=== PATIENT | female | born 1970 | race Caucasian/White ===

== ENCOUNTER → 2016-05-14 | Outpatient (CLI) | payer OTHER ==
[~2016-05-14] MED LIST: CEPH500C PO; CHN/1 PO; CIPR-255 PO; HYDR-5688 PO; IBUP-1451 PO; OXYC-57 PO; PENI500T2 PO
--- NOTE | 2016-05-15 15:11 | MAMMOGRAPHY REPORT ---
BILATERAL DIGITAL SCREENING MAMMOGRAM TOMOSYNTHESIS WITH CAD: 05/14/2016 CLINICAL HISTORY: Routine screening. Patient has no complaints. TECHNIQUE: Breast tomosynthesis in addition to standard 2D mammography was performed. Current study was also evaluated with a Computer Aided Detection (CAD) system. COMPARISON: Comparison is made to exams dated: 06/02/2013 mammogram and 05/27/2012 mammogram - [facility]. BREAST COMPOSITION: There are scattered areas of fibroglandular density in both breasts. FINDINGS: The parenchymal pattern is similar to prior mammograms. No new suspicious mass, net software architect ural distortion or cluster of microcalcifications is seen. IMPRESSION: ACR BI-RADS CATEGORY 1: NEGATIVE There is no mammographic evidence of malignancy. A 1 year screening mammogram is recommended. The p atient will receive written notification of the results. Approximately 10% of breast cancers are not detected with mammography. A negative mammographic repor t should not delay biopsy if a clinically suggestive mass is present. Verito Hickman M.D. ay/:05/14/2016 16:12:30 Chiller Tender: Araseli BLANCA(R)(Fernando)(BD), [facility] letter sent: Normal 1/2 BI-RADS Code: ACR BI-RADS Category 1: Negative
== END | disposition home or self-care (01) ==
LOC: C.MAMM 14:35
PROVIDERS: ATTEND Obstetrics & Gynecology
DX: Z12.31 Encounter for screening mammogram for malignant neoplasm of breast (principal)

== ENCOUNTER → 2017-02-15 | Outpatient (CLI) | payer OTHER ==
[~2017-02-15] MED LIST changes: -CEPH500C PO; -CIPR-255 PO; -HYDR-5688 PO; -IBUP-1451 PO; -OXYC-57 PO; -PENI500T2 PO
== END | disposition home or self-care (01) ==
LOC: C.LABBFT 14:22
PROVIDERS: ATTEND Obstetrics & Gynecology
DX: N95.1 Menopausal and female climacteric states (principal)

== ENCOUNTER 2017-05-10 05:33 | Observation (INO) | payer OTHER ==
[2017-05-01 10:55] VITALS: BMI 27.0
--- NOTE | 2017-05-01 11:19 | PAT Medication Instructions ---
Service Date May 01, 2017. Current Home Medication List Ibuprofen Tab (Motrin), 800 MG PO UD PRN for prn Varenicline (Chantix), 1 TAB PO BID Medication Instructions For Your Scheduled Surgery - Check [facility] surgeon for instructions: Ibuprofen Tab (Motrin), 800 MG PO UD PRN for prn - Hold the following medications the morning of surgery: Varenicline (Chantix), 1 TAB PO BID - Take the following medications as scheduled the night before surgery: Varenicline (Chantix), 1 TAB PO BID If you have any questions please call us at [phone] or [phone] or [phone]
[2017-05-01 11:59] LABS: BASO % 0.6 %; BASO ABS # 0.04 K/uL (0-0.2); EOS % 1.5 %; HEMATOCRIT 44.8 % (37-47); HEMOGLOBIN 15.3 g/dL (12.0-16.0); IG# 0.01 K/uL (0.00-0.02); LYMPH % 25.7 %; LYMPH ABS # 1.75 K/uL (1.2-3.4); MEAN CELL VOLUME 91.2 fL (80-100); MEAN CORPUSCULAR HEMOGLOBIN 31.2 pg (25-34); MEAN CORPUSCULAR HGB CONC 34.2 g/dl (32-36); MONO % 6.3 %; MONO ABS # 0.43 K/uL (0.11-0.59); NEUT % 65.8 %; NEUT ABS # 4.47 K/uL (1.4-6.5); PLATELET COUNT 302 K/uL (130-400); RED CELL DISTRIBUTION WIDTH CV 13.3 % (11.5-14.5); RED CELL DISTRIBUTION WIDTH SD 44.1 fL (36.4-46.3)
[2017-05-01 12:16] LABS: CALCIUM 8.9 mg/dl (8.5-10.1); CREATININE 0.85 mg/dl (0.60-1.20); POTASSIUM 4.1 mmol/L (3.5-5.1)
[~2017-05-10] VITALS: Ht 175.3 cm; Wt 83.1 kg
[2017-05-10] VITALS (9 sets, daily range): BP systolic 104–131; BP diastolic 61–77; PULSE 53–95; TEMP 36.3–36.6; O2SAT 94–99; Ht 175.3 cm; Wt 83.1 kg
[~2017-05-10 05:33] MED LIST changes: +IBUP-1451 PO
[2017-05-10] MEDS ORDERED: LACTATED RINGER'S 1000ML 1,000 ML IV SCH ×2 (06:00)
[2017-05-10] MEDS ORDERED: CEFAZOLIN 2000MG IV PUSH 10 ML IV SCH (06:00)
[2017-05-10] MEDS ORDERED: BUPIVACAINE 0.5 % 5 MG/1 ML MPF 30ML VIAL ONE (06:51)
[2017-05-10] MEDS ORDERED: METHYLENE BLUE 0.5% 10 ML VIAL ONE (06:51)
[2017-05-10] MEDS ORDERED: ROCURONIUM BROMIDE 10 MG/ML 5 ML VIAL IV ONE (07:05)
[2017-05-10] MEDS ORDERED: LIDOCAINE HCL 2% 2 ML VIAL (20MG/ML) ONE (07:05)
[2017-05-10] MEDS ORDERED: PROPOFOL IV EMULSION 10 MG/ML 20 ML VIAL IV ONE (07:05)
[2017-05-10] MEDS ORDERED: MIDAZOLAM HCL 1 MG/ML 2ML VIAL ONE (07:06)
[2017-05-10] MEDS ORDERED: FENTANYL CITRATE INJ 50 MCG/1 ML 2 ML VIAL ONE ×3 (07:06→08:53)
[2017-05-10] MEDS ORDERED: EpHEDrine SULFATE INJ 50 MG/ML AMP IV PRN (07:15)
[2017-05-10] MEDS ORDERED: PROMETHAZINE HCL INJ 6.25 MG in SODIUM CHLORIDE 0.9% 50ML 50 ML IV PRN (07:15)
[2017-05-10] MEDS ORDERED: ATROPINE SULFATE 0.1 MG/ML 5ML SYR IV PRN (07:15)
[2017-05-10] MEDS ORDERED: ONDANSETRON INJ 2 MG/ML 2 ML VIAL IV PRN ×2 (07:15→10:45)
--- NOTE | 2017-05-10 07:27 | History & Physical Bridge Note ---
H&P Re-Evaluation Bridge Note: I have examined the patient, reviewed the History & Physical and in the interval since the performance of the History & Physical I have noted the following changes of clinical significance: Plan for TLH/BSO with robotic assistance.
[2017-05-10] MEDS ORDERED: LABETALOL HCL IV 5 MG/ML 20ML IV ONE (09:16)
[2017-05-10] MEDS ORDERED: ONDANSETRON INJ 2 MG/ML 2 ML VIAL ONE (09:36)
[2017-05-10] MEDS ORDERED: GLYCOPYRROLATE INJ 0.2 MG/ML VIAL ONE (09:36)
[2017-05-10] MEDS ORDERED: DEXAMETHASONE SOD INJ 4 MG/ML VIAL ONE (09:36)
[2017-05-10] MEDS ORDERED: KETOROLAC TROMETHAMINE 30 MG/ML VIAL ONE (09:37)
[2017-05-10] MEDS ORDERED: NEOSTIGMINE METHYLSULFATE 5 MG/5 ML SYR ONE (09:37)
[2017-05-10] MEDS ORDERED: HYDROmorphone INJ 2 MG/ML SYR/VIAL ONE (10:11)
[2017-05-10] MEDS ORDERED: TISSEEL FIBRIN SEALANT 4ML TOP ONE (10:22)
[2017-05-10] MEDS ORDERED: SIMETHICONE 80 MG CHEW PO PRN (10:45)
[2017-05-10] MEDS ORDERED: OXYCODONE/ACETAMINOPHEN 5-325 TAB PO PRN (10:45)
--- NOTE | 2017-05-10 10:48 | [facility] Post Operative Brief Note ---
Immediate Operative Summary Operative Date May 10, 2017. Pre-Operative Diagnosis Genetic Susceptibility to Ovarian Cancer Post-Operative Diagnosis Same as Preop Procedure(s) Performed total Laparoscopic Hysterectomy, Bilateral Salpingo-Oophorectomy, cystoscopy Surgeon Dr. Etaon Accredited Farm Manager Surgeon(s) none Estimated Blood Loss 5 ML Findings Normal appearing uterus, tubes, ovaries. Tubes s/p tubal ligation. Bladder appears wnl with bilateral ureter jets. Specimens A. Cervix, Uterus, Bilateral Fallopian Tubes and Ovaries Drains ramirez, clear yellow Anesthesia general Complication(s) None Disposition Recovery Room / PACU
[2017-05-10] MEDS: FENTANYL CITRATE INJ 50 MCG/1 ML 2 ML VIAL IV PRN ×4 (10:52→11:13)
--- NOTE | 2017-05-10 11:40 | Anesthesiology Progress Note ---
Anesthesia Post Op Note Date & Time May 10, 2017 at 11:40 Vital Signs Pain Intensity: 3 Vital Signs Past 12 Hours Date Time Temp Pulse Resp B/P (MAP) Pulse Ox O2 Delivery O2 Flow Rate FiO2 05/10/17 11:21 36.2 56 16 103/71 99 Nasal Cannula 2 05/10/17 11:11 63 16 135/70 100 Nasal Cannula 2 05/10/17 11:01 69 16 126/74 100 Nasal Cannula 2 05/10/17 10:51 67 16 107/63 98 Oxymask 10 05/10/17 10:42 36.3 71 16 138/68 100 Oxymask 10 05/10/17 05:51 36.3 75 18 104/61 (75) 99 Room Air Notes Mental Status: alert / awake / arousable, participated in evaluation Pt Amnestic to Procedure: Yes Nausea / Vomiting: adequately controlled Pain: adequately controlled Airway Patency, RR, SpO2: stable & adequate BP & HR: stable & adequate Hydration State: stable & adequate Anesthetic Complications: no major complications apparent
--- NOTE | 2017-05-10 12:00 | NUR ---
OBS NOTE: Pt continues to recover from surgery. No s/s of complications at this time.
--- NOTE | 2017-05-10 12:02 | NUR ---
OBS NOTE: Pt arrived to floor at 1145 via bed. Awake A&Ox2. at bedside. Pt is awake A&Ox4. IV infusing into left hand LR@125. Saline locked in right hand. Wearing SCDs bilaterally. Dermabond to abdomen x5, with no s/s of complications noted. Pt is 98% on RA. Tolerating ice and water well. Mendes intact and patent. See interventions for full assessment. Oriented to room, call bhatia and post op rounding. Verbalized understanding. All questions answered. Bed locked and in lowest position. Side rails upx2. Call bhatia within reach.
--- NOTE | 2017-05-10 12:18 | NUR ---
A NOTE: PT tolerating clears well. Passing gas and belching. Positive for BSx4,although hypoactive. Declined clear lunch tray. Requesting crackers and regular lunch. Will place orderers.
[2017-05-10] MEDS ORDERED: IV FLUIDS COMPLETED PRN (12:30)
--- NOTE | 2017-05-10 12:37 | OPERATIVE REPORT ---
DATE OF OPERATION: 05/10/2017 PREOPERATIVE DIAGNOSIS: Genetics susceptibility to ovarian cancer. POSTOPERATIVE DIAGNOSIS: Same. PROCEDURE: Total laparoscopic hysterectomy with bilateral salpingo-oophorectomy and cystoscopy. SURGEON: Dr. Andria Eaton. ADOLESCENT COUNSELOR: None. ESTIMATED BLOOD LOSS: 5 mL. FINDINGS: Normal appearing uterus, tubes, and ovaries. Tubes are status post tubal ligation. Bladder appears normal with bilateral ureter jets. SPECIMENS: Cervix, uterus, bilateral fallopian tubes and ovaries as single specimen. DRAINS: Mendes, clear yellow. ANESTHESIA: General. COMPLICATIONS: None. DISPOSITION: Stable and good to recovery area. INDICATIONS FOR PROCEDURE: The patient is a 46-year-old G8, P7 with history of section x1 and tubal ligation who has a strong family history of ovarian cancer. She underwent genetic counseling and testing at [facility] for cancer risk and was revealed to have a genetic variant that could increase her susceptibility to ovarian cancer with an unknown severity. She elected to undergo prophylactic bilateral salpingo-oophorectomy and hysterectomy. OPERATION AND FINDINGS: The patient was seen in the preoperative holding area where risks, benefits, alternatives to surgery were reviewed. She elected to proceed with surgery. She was taken to the operating room where general anesthesia was administered. She was prepared and draped in the usual sterile fashion with feet in Yellofin stirrups in the dorsal lithotomy position. A weighted speculum was placed in the vagina. Cervix was visualized and its anterior lip was grasped with a single tooth tenaculum. Bilateral stay sutures were placed at 3 and 9 o'clock and the medium VCare uterine manipulator was placed and sutured in place, a Mendes catheter was inserted. Attention was then turned to the abdomen and gloves were changed and the supraumbilical incision site and trocar were placed under direct open Franko technique. The scope was inserted and the intra-abdominal placement was confirmed. CO2 gas was used to insufflate the abdomen to 15 mmHg. Under direct visualization, 2 additional ports were placed on each side for a total of 3 robotic arms and 1 nurses assistant port. The robot was then docked. The left IP ligament was coagulated and transected. The left round ligament was then coagulated and transected and the pedicles were taken down. In a similar fashion, the right IP ligament and round ligaments were transected. The bladder flap was created across the anterior aspect of the uterus and the bladder was pushed down and away from the field with some adhesive disease from her prior section. Bilateral uterine arteries were coagulated and transected and a Ray-Keira was used to further push the bladder out of the way. A circumferential incision was made to transect the uterus and cervix from the vaginal cuff. The uterus, bilateral ovaries and tubes were then delivered through the vagina. The vaginal cuff was reapproximated using 0 V-Loc suture. A low pressure test was performed to confirm excellent hemostasis. Tisseel coagulant was used to ensure continued hemostasis. Attention was then turned to the bladder where the Mendes catheter was removed. Cystoscopy was performed and bilateral ureters were identified and a strong urine jet was noted through each ureteral orifice. The cystoscope was removed. Mendes catheter was reinserted. Gloves were changed and attention was then turned to the abdomen where the fascial incision of the supraumbilical incision was reapproximated using 0 Vicryl. All skin incisions were reapproximated using 4-0 Vicryl followed by Dermabond. Lidocaine was used for local anesthetic at each incision site. The patient tolerated the procedure well and she was taken to the recovery area in stable and good condition. I attest to the content of the Intraoperative Record and any orders documented therein. Any exceptions are noted below. ISAIAH
--- NOTE | 2017-05-10 13:00 | NUR ---
A NOTE: Dr. Eaton phoned and stated that Mendes can be removed when " she gets up and gets moving." Provided Dr. Eaton with update. She states she wants to come talk to pt prior to d/c.
[2017-05-10] MEDS: OXYCODONE/ACETAMINOPHEN 5-325 TAB PO PRN ×2 (13:35→14:47)
--- NOTE | 2017-05-10 14:14 | NUR ---
A NOTE: Pt able to dangle, stand and ambulate in room prior to Mendes d/c. C/o pain but has been medicated, see eMAR. Removed Mendes as ordered. Education provided to pt on voiding. Verbalized understanding. Encouraged to ambulate when pain controlled. Will continue to monitor.
[2017-05-10] MEDS ORDERED: OXYC-57 PO (15:24)
--- NOTE | 2017-05-10 15:31 | Discharge Instructions ---
Discharge Instructions Date of Service May 10, 2017. Admission Reason for Admission: Family Hx Of Ovarian Cancer, Genetic Susceptibilit Discharge Discharge Diagnosis / Problem: s/p hysterectomy, bilateral salpingoophorectomy Discharge Goals Goal(s): Routine recovery after surgery Activity Recommendations Activity Limitations: per Instructions/Follow-up section . Instructions / Follow-Up Instructions / Follow-Up ACTIVITY RECOMMENDATIONS: Activity: * During the first week at home, your activity should be similar to that done at the hospital prior to discharge. Your primary activity is in-house walking interspersed with rest periods. Preparing lunch for yourself is acceptable. You may go up and down stairs. Try to stay up progressively longer periods of time to help regain your strength more quickly. * During the second week at home, activities should include some meal preparation, walking to strengthen abdominal muscles and riding in a car. You may drive a car and make brief shopping trips at the end of the second week at home. * Lifting should not exceed 15-20 pounds during the first month after surgery. * Sexual intercourse can usually be resumed about 12 weeks after surgery depending on findings at your post-operative examinations. Bathing: * Showers are permissible. SPECIAL CARE INSTRUCTIONS: The major discomforts related to surgery have now passed and progressive improvement will occur. The tight uncomfortable feeling in the abdominal, pelvic and back area will gradually fade away. Fatigue may take the longest to disappear; your energy level may take several weeks to return to normal. At times you may become frustrated or impatient over not feeling as well or doing as much as you'd like , but this is a normal reaction to surgery and will pass with time. Vaginal Discharge: * Odorous, blood-tinged or brownish discharge may be present for one to three weeks after surgery. * Pads should be used and not tampons. * Stitches may be passed vaginally. * Bleeding may be somewhat increased approximately two weeks after surgery, which is related to the stitches dissolving. * If bleeding becomes free flowing, notify our office at . Bowel Care: * Constipation after surgery is very common. Foods that promote bowel activity (bran, fruit, prune juice) should be included in your diet. * A capsule, DIALOSE-PLUS, can be purchased without a prescription and can be taken daily (one or two capsules) to assist in promoting bowel activity. * If you have had vaginal surgery involving your rectum, we will discuss this when discharged from the hospital. Catheter or "CYSTO-CATH": * Approximately 80% of "bladder repair" patients will require a catheter at home until the swelling recedes. * Some patients require days to weeks before adequate bladder emptying will resume. * In general, after each time you urinate, un-clamp the catheter again. Measure the amount in the bag. When this is consistently below 100cc, call the office to make an appointment to have the catheter removed. Temperature: * Any fever above 100.4 degrees F should be reported to our office at . FOLLOW-UP: Post-Operative Appointments: * Individual instructions will have been given about the timing of your first examination, but this is usually at the end of the second week home. * You will need to call the office at soon after discharge to make the appointment for your post-op check-up if it has not already been scheduled. * Additional information regarding activity, sexual intercourse and when to return to work will be given at this appointment. WE WISH YOU A SPEEDY RECOVERY! Current Hospital Diet Patient's current hospital diet: Regular Diet Discharge Diet Recommended Diet: Regular Diet Procedures Procedures Performed: total Laparoscopic Hysterectomy, Bilateral Salpingo-Oophorectomy, cystoscopy Pending Studies Studies pending at discharge: yes List of pending studies: pathology report Medical Emergencies . Who to Call and When: Medical Emergencies: If at any time you feel your situation is an emergency, please call 911 immediately. . Non-Emergent Contact Non-Emergency issues call your: Primary Care Provider, Floor Cashier . . "Provider Documentation" section prepared by Andria Eaton. . VTE Core Measure Inpt VTE Proph given/why not?: Treatment not indicated [place] Drug Monitoring Program Search Results: patient reviewed within database
--- NOTE | 2017-05-10 15:44 | Discharge Summary ---
Discharge Summary Date of Service May 10, 2017. Discharge Summary Admission Date: May 10, 2017 at 10:45 Discharge Date: May 10, 2017 Discharge Disposition: Home Principal Diagnosis: s/p hysterectomy, bilateral salpingoophorectomy Immunizations: Have You Had Influenza Vaccine: Unknown History of Tetanus Vaccine?: Unknown History of Pneumococcal: Unknown History of Hepatitis B Vaccine: Unknown Procedures: Laparoscopic robotic-assisted total hysterectomy with bilateral salpingoophorectomy, cystoscopy Consultations: anesthesia Discharge Exam Physical Exam: General Appearance: WD/WN, no apparent distress Respiratory/Chest: no respiratory distress Cardiovascular: regular rate, rhythm Abdomen / GI: non tender, soft Extremities: normal inspection Neurologic/Psychiatric: alert, normal mood/affect, oriented x 3 Skin: normal color Hospital Course Patient was observed following surgery. She ambulated, urinated, tolerated PO and was feeling well, pain was controlled. She felt ready to go home. Reviewed discharge instructions, discharged to home. Followup in office in 2 weeks. Total Time Spent: Less than 30 minutes This includes examination of the patient, discharge planning, medication reconciliation, and communication with other providers. Discharge Instructions Please refer to the electronic Patient Visit Report (Discharge Instructions) for additional information. Follow-Up 2 weeks in office
--- NOTE | 2017-05-10 15:48 | NUR ---
A NOTE: Discharge instructions provided to pt. Verbalized understanding. All questions answered. New Rx for Percocet 5/325mg tablets provided. Education on Ibuprofen for pain control as well. IV sites removed, Catheter tips intact. No s/s of IV related complications. Pt was able to void on her own prior to d/c. Pt escorted to front lobby with all belongings via wheel chair by volunteer.
[2017-05-31] MEDS ORDERED: TRAM-10 PO (09:45)
[2017-07-09] MEDS ORDERED: CHN/1 PO (10:19)
== END 2017-05-10 16:00 | disposition home or self-care (01) ==
LOC: C.ACU 05:33 → C.MS4N 10:45 → ENRESERV 11:17
PROVIDERS: ADMIT Obstetrics & Gynecology; ATTEND Obstetrics & Gynecology
DX: Z15.09 Genetic susceptibility to other malignant neoplasm (principal); Z80.41 Family history of malignant neoplasm of ovary; Z80.49 Family history of malignant neoplasm of other genital organs; Z80.1 Family history of malignant neoplasm of trachea, bronchus and lung; F17.210 Nicotine dependence, cigarettes, uncomplicated
CPT/HCPCS: 58571; S2900

== ENCOUNTER → 2017-05-17 | Outpatient (CLI) | payer OTHER ==
[~2017-05-17] MED LIST changes: +CEPH500C PO; +CIPR-255 PO; +OXYC-57 PO; +TRAM-10 PO
== END | disposition home or self-care (01) ==
LOC: C.LAB1850 15:09
PROVIDERS: ATTEND Obstetrics & Gynecology
DX: R39.9 Unspecified symptoms and signs involving the genitourinary system (principal)

== ENCOUNTER 2017-05-20 17:43 | Emergency (ER) | payer OTHER ==
[~2017-05-20] VITALS: Ht 175.3 cm; Wt 80.0 kg
[~2017-05-20 17:43] MED LIST changes: -CEPH500C PO; -CIPR-255 PO; -OXYC-57 PO; -TRAM-10 PO
[2017-05-20 17:55] VITALS: TEMP 36.7; Ht 175.3 cm; Wt 80.0 kg
[2017-05-20] MEDS: SODIUM CHLORIDE 0.9% 500ML 500 ML IV SCH ×3 (18:45→19:47)
[2017-05-20] MEDS ORDERED: OPTIRAY 320 IV PRN (18:45)
[2017-05-20] MEDS ORDERED: CIPR-255 PO (18:46)
[2017-05-20 19:26] LABS: MEAN CELL VOLUME 89.8 fL (80-100); MEAN CORPUSCULAR HEMOGLOBIN 31.9 pg (25-34); MEAN CORPUSCULAR HGB CONC 35.6 g/dl (32-36); MEAN PLATELET VOLUME 9.4 fL (7.4-10.4); PLATELET COUNT 381 K/uL (130-400); RED CELL DISTRIBUTION WIDTH SD 42.8 fL (36.4-46.3); WHITE BLOOD COUNT 7.16 K/uL (4.8-10.8)
[2017-05-20 19:43] LABS: ALBUMIN 3.8 gm/dl (3.4-5.0); CALCIUM 9.4 mg/dl (8.5-10.1); CREATININE 0.83 mg/dl (0.60-1.20); POTASSIUM 3.8 mmol/L (3.5-5.1)
[2017-05-20] MEDS ORDERED: KETOROLAC TROMETHAMINE 30 MG/ML VIAL IV STA (20:00)
--- NOTE | 2017-05-20 21:02 | EMERGENCY ROOM VISIT NOTE ---
History First contact with patient: 18:05 Chief Complaint: PAIN (GENERALIZED) Stated Complaint: PAIN-HAD HYSTERECTOMY LAST WEEK History of Present Illness The patient is a 46 year old female who presents to the Emergency Room with complaints of abdominal pain The pain started on Saturday. It is located in her R middle quadrant of her abdomen. It radiates around to her flank. She says that the pain is worse with movement. She rates the pain as a 5-7 in severity. Associated symptoms include vomiting x2, sweats, decreased appetite, fatigue, and pressure with urination She had a hysterectomy 10 days ago. She went to her gynaecologist on Saturday and was put on ciprofloxacin for what she says was a UTI. Then when she went to the pharmacy she was told to stop taking pain medications because they would interact with the ciprofloxacin. Review of Systems CONSTITUTIONAL: No fever, chills, +sweats or night sweats.. No weight loss or weight gain. NEUROLOGIC: No headaches, dizziness or syncopal episodes. HEENT: No hearing or visual changes. No sinus or nasal issues. No mouth sores, thrush or oral lesions. CARDIOVASCULAR: No chest pain or palpitations. RESPIRATORY: No SOB, dyspnea, cough or hemoptysis. GASTROINTESTINAL: + nausea, vomiting, no diarrhea, constipation, reflux, melena or hematochezia. GENITOURINARY: No dysuria, frequency, urgency, incontinence or hematuria. + pressure with urination SKIN: No rashes or skin lesions. HEMATOLOGIC: No bleeding or abnormal bruising Past Medical/Surgical History Medical Problems: (1) Acute bronchitis (2) Acute bronchitis (3) Migraine (4) Migraine (5) Ovarian cyst (6) Ovarian cyst Surgical Problems: (1) History of tubal ligation (2) History of tubal ligation (3) S/P hysterectomy with oophorectomy Family History FH: heart disease FH: heart disease FH: lung disease FH: lung disease FHx: cancer FHx: cancer Hypertension Hypertension Seizures Seizures Social History Smoking Status: Current Every Day Smoker Alcohol Use: none Marital Status: Housing Status: lives with family Occupation Status: unemployed Current/Historical Medications Scheduled Ciprofloxacin Hcl (Cipro), 500 MG PO BID Varenicline (Chantix), 1 MG PO BID Scheduled PRN Ibuprofen Tab (Motrin), 800 MG PO UD PRN for prn Allergies NKDA Physical Exam Vital Signs Date Time Temp Pulse Resp B/P (MAP) Pulse Ox O2 Delivery O2 Flow Rate FiO2 05/20/17 20:13 77 18 130/86 100 Room Air 05/20/17 17:55 36.7 84 18 136/82 100 Room Air Physical Exam Neck: Supple; no JVD, nuchal rigidity, cervical lymphadenopathy, or auscultated bruits. Heart: Regular rate and rhythm. There is a normal S1 and S2 with no murmurs, clicks, or gallops appreciated. Lungs: Clear to auscultation bilaterally with no wheezes, rales, or rhonchi. Abdomen: Soft, tender in the Right middle quadrant and R lumbar paraspinal muscle, abdomen nondistended, with good bowel sounds. There are no palpable pulsatile masses or hepatosplenomegaly. There is no guarding, rigidity, or rebound noted. 5 small abdominal stitches healing well and without any surrounding cellulitis Extremities: No evidence of cyanosis, clubbing, or edema. There are easily palpable peripheral pulses. Neuro:The patient is awake and alert, oriented to day, time, and place. Muscle strength is 5/5 in all 4 extremities. The patient has equal ict teacher strength and equal pedal push and pull. There are no cerebellar signs. Medical Decision & Procedures Laboratory Results 05/20/17 19:00 05/20/17 19:00 Test 05/20/17 19:00 05/20/17 19:20 Red Blood Count 5.01 M/uL (4.2-5.4) Mean Corpuscular Volume 89.8 fL (80-100) Mean Corpuscular Hemoglobin 31.9 pg (25-34) Mean Corpuscular Hemoglobin Concent 35.6 g/dl (32-36) RDW Standard Deviation 42.8 fL (36.4-46.3) RDW Coefficient of Variation 13.0 % (11.5-14.5) Mean Platelet Volume 9.4 fL (7.4-10.4) Anion Gap 5.0 mmol/L (3-11) Est Creatinine Clear Calc Drug Dose 94.9 ml/min Estimated GFR () 97.3 Estimated GFR (Non- 84.0 BUN/Creatinine Ratio 9.5 (10-20) Calcium Level 9.4 mg/dl (8.5-10.1) Total Bilirubin 0.3 mg/dl (0.2-1) Aspartate Amino Transf (AST/SGOT) 24 U/L (15-37) Alanine Aminotransferase (ALT/SGPT) 31 U/L (12-78) Alkaline Phosphatase 126 U/L (45-117) Total Protein 8.0 gm/dl (6.4-8.2) Albumin 3.8 gm/dl (3.4-5.0) Globulin 4.2 gm/dl (2.5-4.0) Albumin/Globulin Ratio 0.9 (0.9-2) Lipase 150 U/L (73-393) Urine Color YELLOW Urine Appearance CLEAR (CLEAR) Urine pH 5.0 (4.5-7.5) Urine Specific [place] 1.012 (1.000-1.030) Urine Protein NEG (NEG) Urine Glucose (UA) NEG (NEG) Urine Ketones NEG (NEG) Urine Occult Blood 1+ (NEG) Urine Nitrite NEG (NEG) Urine Bilirubin NEG (NEG) Urine Urobilinogen NEG (NEG) Urine Leukocyte Esterase TRACE (NEG) Urine WBC (Auto) 1-5 /hpf (0-5) Urine RBC (Auto) 0-4 /hpf (0-4) Urine Hyaline Casts (Auto) 0 /lpf (0-5) Urine Epithelial Cells (Auto) 10-20 /lpf (0-5) Urine Bacteria (Auto) NEG (NEG) Medications Administered Medications (Trade) Dose Ordered Sig/Pati Route Start Time Stop Time Status Last Admin Dose Admin Sodium Chloride 500 ml @ 999 mls/hr Q31M IV 05/20/17 18:45 06/19/17 18:44 05/20/17 19:16 999 MLS/HR Ketorolac Tromethamine (Toradol Inj) 10 mg NOW STAT IV 05/20/17 20:00 05/20/17 20:02 DC 05/20/17 20:11 10 MG ED Course 5: I went to B10 and performed a full history and physical examination 1844: I discussed the case with Dr. Rojas and I ordered labs and imaging studies 1999: Dr. Rojas informed me that he expelled a small amount of pus from one of the patient stitches. He also ordered the patient toradol 2100: I reviewed the patients lab work which returned as unremarkable 2114: I reassessed the patient and she said that was still in discomfort and "feeling crummy" 2132: Patients CT scan returned without any acute findings, I informed the patient of results. Will obtain abdominal US and give 0.5mg of dilaudid IV 2199: I discussed the case with Dr. Rojas and he agreed to continue the patients management Medical Decision The patient's history was concerning for abdominal pain. Differential diagnosis: Etiologies such as appendicitis, diverticulitis, PUD, biliary pathology, UTI, pancreatitis, obstruction, mesenteric ischemia, aortic pathology, infections, inflammatory bowel disease, renal colic, as well as others were entertained. Patient with continued abdominal pain after hysterectomy 10 days ago. Lab and imaging unremarkable. Patient with normal vitals signs. Unknown cause of abdominal pain at this time. Dr. Rojas to continue management of the patient Impression Primary Impression: Right lower quadrant abdominal pain Departure Information Referrals No Doctor, Assigned (PCP) Patient Instructions [facility]
--- NOTE | 2017-05-20 21:21 | DIAGNOSTIC IMAGING REPORT ---
CT SCAN OF THE ABDOMEN AND PELVIS WITH IV CONTRAST CLINICAL HISTORY: Generalized abdominal pain. 10 days status post hysterectomy. COMPARISON STUDY: Abdominal CT dated 12/08/2014. TECHNIQUE: Following the IV administration of 114 cc of Optiray 320, CT scan of the abdomen and pelvis is performed from the lung bases to the proximal femora. Images are reviewed in the axial, sagittal, and coronal planes. IV contrast was administered without complication. A dose lowering technique was utilized adhering to the principles of ALARA. CT DOSE: 536.78 mGy.cm FINDINGS: Lung bases: The heart is normal in size and without pericardial effusion. The lung bases are clear. Liver: The contrast-enhanced liver is normal in size, contour, and attenuation. Fatty infiltration is seen adjacent to falciform ligament. There is no intrahepatic biliary ductal dilatation. The hepatic veins and portal veins are patent. Gallbladder: Unremarkable. Spleen: Normal in size and attenuation. Pancreas: Unremarkable. Adrenal glands: Unremarkable. Kidneys: The contrast enhanced kidneys are normal in size and without hydronephrosis. The kidneys enhance symmetrically. Abdominal vasculature: The abdominal aorta is normal in course and caliber noting mild atherosclerotic calcification. Bowel: Moderate colonic fecal retention is observed. No bowel obstruction is seen. The appendix is well-visualized and there is no evidence of acute appendicitis. There is focal dilatation of the appendix seen on image #[id number]. The appendix measures up to 11 mm at this level and is normal both proximally and distally. Peritoneum: There is no intraperitoneal free air or abdominal ascites. There is a fat-containing umbilical hernia. Periumbilical induration and fluid within the adjacent subcutaneous fat is likely related to a laparoscopy port. Lymphadenopathy: None. Pelvic viscera: The bladder is partially decompressed and grossly unremarkable. The uterus is surgically absent. There is a small volume of free fluid and nonspecific stranding seen in the cul-de-sac. No organized fluid collection is identified. No adnexal lesion is seen. Skeletal structures: No lytic or blastic lesions are seen. There is a right-sided pars defect at L5. IMPRESSION: 1. The uterus is surgically absent. There is nonspecific fluid and stranding identified in the cul-de-sac, likely related to recent surgery. No organized fluid collection is seen to suggest abscess. 2. There is no evidence of acute appendicitis. There is focal dilatation involving the midportion of the appendix, which is normal both proximally and distally. This is of indeterminant significance, and nonemergent surgical follow-up is recommended as an appendiceal mass would be impossible to exclude. 3. Moderate constipation. 4. Additional findings as above. Electronically signed by: Lewis Tobar M.D. 05/20/2017 9:20 PM Dictated Date/Time: 05/20/2017 9:14 PM
[2017-05-20] MEDS ORDERED: HYDROmorphone INJ 0.5 MG/0.5 ML SYR IV STA (21:29)
--- NOTE | 2017-05-20 22:58 | DIAGNOSTIC IMAGING REPORT ---
ULTRASOUND RIGHT UPPER QUADRANT ABDOMEN CLINICAL HISTORY: Generalized abdominal pain. COMPARISON STUDY: Abdominal CT dated 05/20/2017. TECHNIQUE: Real-time, grayscale, and color flow sonography of the right upper quadrant of the abdomen was performed. Images are reviewed in the transverse and longitudinal planes. FINDINGS: Liver: The liver is normal in size and echotexture. There is no intrahepatic biliary ductal dilatation. The main portal vein is patent. Gallbladder: The gallbladder is normal in appearance. No gallstones are identified. There is no gallbladder wall thickening or pericholecystic fluid. A sonographic Horner's sign is reportedly absent. The common bile duct measures up to 0.5 cm in diameter. Pancreas: Visualized portions of the pancreatic head and body are normal in appearance. The splenic vein is patent. Right kidney: Survey images of the right kidney demonstrate normal size and echotexture. There is no hydronephrosis. Ascites: None. IMPRESSION: Unremarkable sonographic assessment of the right upper quadrant. No gallstones are identified. Electronically signed by: Lewis Tobar M.D. 05/20/2017 10:57 PM Dictated Date/Time: 05/20/2017 10:56 PM
[2017-05-20 23:15] VITALS: BP 135/72; PULSE 70; O2SAT 97
[2017-05-20] MEDS ORDERED: CEPHALEXIN 500MG HOME PACK 1 EA BTL PO ONE (23:15)
[2017-05-20] MEDS ORDERED: OXYCODONE IR HOME PACK PO ONE (23:15)
[2017-05-20] MEDS ORDERED: CEPH500C PO (23:17)
--- NOTE | 2017-05-20 23:22 | EMERGENCY ROOM VISIT NOTE ---
History Report prepared by Mohit: Vincent Miller Under the Supervision of: Dr. Blake Rojas M.D. First contact with patient: 18:06 Chief Complaint: PAIN (GENERALIZED) Stated Complaint: PAIN-HAD HYSTERECTOMY LAST WEEK History of Present Illness The patient is a 46 year old female who presents to the Emergency Room with complaints of generalized pain in her right abdomen that began yesterday. The patient states that she had a hysterectomy 10 days prior to this visit and was given a 7-day strain of narcotics. She visited her primary care physician for abdominal pain, and was placed on Cipro. She was not given any pain medication and was informed by her pharmacist to not take any pain killers with the Cipro. She rates her current pain as a 7/10 in severity with movement and a 5/10 at rest. She also complains of vomiting twice yesterday, fatigue, and intermittent diaphoresis. Pt denies LOC, headache, fevers, chills, visual changes, neck pain , chest pain, breathing difficulties, back pain, melena, hematochezia, numbness , weakness, lymphadenopathy, rash, or other complaints. Source of History: patient Onset: One day [employer] Position: abdomen Symptom Intensity: 7/10 with movement Modifying Factors (Worsening): movement Modifying Factors (Relieving): rest Associated Symptoms: + diaphoresis, + vomiting, + abdominal pain, No chest pain Review of Systems See HPI for pertinent positives and negatives. A total of ten systems were reviewed and were otherwise negative. Past Medical & Surgical Medical Problems: (1) Acute bronchitis (2) Acute bronchitis (3) Migraine (4) Migraine (5) Ovarian cyst (6) Ovarian cyst Surgical Problems: (1) History of tubal ligation (2) History of tubal ligation (3) S/P hysterectomy with oophorectomy Family History FH: heart disease FH: heart disease FH: lung disease FH: lung disease FHx: cancer FHx: cancer Hypertension Hypertension Seizures Seizures Social History Smoking Status: Current Every Day Smoker Alcohol Use: none Marital Status: Housing Status: lives with family Occupation Status: unemployed Current/Historical Medications Scheduled Cephalexin Monohydrate (Keflex), 500 MG PO QID Ciprofloxacin Hcl (Cipro), 500 MG PO BID Varenicline (Chantix), 1 MG PO BID Scheduled PRN Ibuprofen Tab (Motrin), 800 MG PO UD PRN for prn Allergies Coded Allergies: No Known Allergies (Verified , 05/10/17) Physical Exam Vital Signs Date Time Temp Pulse Resp B/P (MAP) Pulse Ox O2 Delivery O2 Flow Rate FiO2 05/20/17 23:15 70 16 135/72 97 05/20/17 22:36 95 16 148/88 98 Room Air 05/20/17 20:13 77 18 130/86 100 Room Air 05/20/17 17:55 36.7 84 18 136/82 100 Room Air Physical Exam GENERAL: Awake, alert, well-appearing, in no distress HENT: Normocephalic, atraumatic. Oropharynx unremarkable. EYES: Normal conjunctiva. Sclera non-icteric. NECK: Supple. No nuchal rigidity. FROM. No JVD. RESPIRATORY: Clear to auscultation. CARDIAC: Regular rate, normal rhythm. Extremities warm and well perfused. Pulses equal. ABDOMEN: Soft, non-distended. RUQ tenderness to palpation. Right costal margin tenderness No rebound or guarding. No masses. RECTAL: Deferred. MUSCULOSKELETAL: Chest examination reveals no tenderness. The back is symmetrical on inspection without obvious abnormality. Right CVA tenderness to palpation positive. No joint edema. LOWER EXTREMITIES: Calves are equal size bilaterally and non-tender. No edema. No discoloration. NEURO: Normal sensorium. No sensory or motor deficits noted. SKIN: There is some fluctuance and purulence under the Dermabond covering the incision in the RUQ. Medical Decision & Procedures ER Provider Diagnostic Interpretation: CT SCAN OF THE ABDOMEN AND PELVIS WITH IV CONTRAST CLINICAL HISTORY: Generalized abdominal pain. 10 days status post hysterectomy. COMPARISON STUDY: Abdominal CT dated 12/08/2014. TECHNIQUE: Following the IV administration of 114 cc of Optiray 320, CT scan of the abdomen and pelvis is performed from the lung bases to the proximal femora. Images are reviewed in the axial, sagittal, and coronal planes. IV contrast was administered without complication. A dose lowering technique was utilized adhering to the principles of ALARA. CT DOSE: 536.78 mGy.cm FINDINGS: Lung bases: The heart is normal in size and without pericardial effusion. The lung bases are clear. Liver: The contrast-enhanced liver is normal in size, contour, and attenuation. Fatty infiltration is seen adjacent to falciform ligament. There is no intrahepatic biliary ductal dilatation. The hepatic veins and portal veins are patent. Gallbladder: Unremarkable. Spleen: Normal in size and attenuation. Pancreas: Unremarkable. Adrenal glands: Unremarkable. Kidneys: The contrast enhanced kidneys are normal in size and without hydronephrosis. The kidneys enhance symmetrically. Abdominal vasculature: The abdominal aorta is normal in course and caliber noting mild atherosclerotic calcification. Bowel: Moderate colonic fecal retention is observed. No bowel obstruction is seen. The appendix is well-visualized and there is no evidence of acute appendicitis. There is focal dilatation of the appendix seen on image #[id number]. The appendix measures up to 11 mm at this level and is normal both proximally and distally. Peritoneum: There is no intraperitoneal free air or abdominal ascites. There is a fat-containing umbilical hernia. Periumbilical induration and fluid within the adjacent subcutaneous fat is likely related to a laparoscopy port. Lymphadenopathy: None. Pelvic viscera: The bladder is partially decompressed and grossly unremarkable. The uterus is surgically absent. There is a small volume of free fluid and nonspecific stranding seen in the cul-de-sac. No organized fluid collection is identified. No adnexal lesion is seen. Skeletal structures: No lytic or blastic lesions are seen. There is a right-sided pars defect at L5. IMPRESSION: 1. The uterus is surgically absent. There is nonspecific fluid and stranding identified in the cul-de-sac, likely related to recent surgery. No organized fluid collection is seen to suggest abscess. 2. There is no evidence of acute appendicitis. There is focal dilatation involving the midportion of the appendix, which is normal both proximally and distally. This is of indeterminant significance, and nonemergent surgical follow-up is recommended as an appendiceal mass would be impossible to exclude. 3. Moderate constipation. 4. Additional findings as above. Electronically signed by: Lewis Tobar M.D. 05/20/2017 9:20 PM Dictated Date/Time: 05/20/2017 9:14 PM ULTRASOUND RIGHT UPPER QUADRANT ABDOMEN CLINICAL HISTORY: Generalized abdominal pain. COMPARISON STUDY: Abdominal CT dated 05/20/2017. TECHNIQUE: Real-time, grayscale, and color flow sonography of the right upper quadrant of the abdomen was performed. Images are reviewed in the transverse and longitudinal planes. FINDINGS: Liver: The liver is normal in size and echotexture. There is no intrahepatic biliary ductal dilatation. The main portal vein is patent. Gallbladder: The gallbladder is normal in appearance. No gallstones are identified. There is no gallbladder wall thickening or pericholecystic fluid. A sonographic Hornre's sign is reportedly absent. The common bile duct measures up to 0.5 cm in diameter. Pancreas: Visualized portions of the pancreatic head and body are normal in appearance. The splenic vein is patent. Right kidney: Survey images of the right kidney demonstrate normal size and echotexture. There is no hydronephrosis. Ascites: None. IMPRESSION: Unremarkable sonographic assessment of the right upper quadrant. No gallstones are identified. Electronically signed by: Lewis Tobar M.D. 05/20/2017 10:57 PM Dictated Date/Time: 05/20/2017 10:56 PM Laboratory Results 05/20/17 19:00 05/20/17 19:00 Test 05/20/17 19:00 05/20/17 19:20 Red Blood Count 5.01 M/uL (4.2-5.4) Mean Corpuscular Volume 89.8 fL (80-100) Mean Corpuscular Hemoglobin 31.9 pg (25-34) Mean Corpuscular Hemoglobin Concent 35.6 g/dl (32-36) RDW Standard Deviation 42.8 fL (36.4-46.3) RDW Coefficient of Variation 13.0 % (11.5-14.5) Mean Platelet Volume 9.4 fL (7.4-10.4) Anion Gap 5.0 mmol/L (3-11) Est Creatinine Clear Calc Drug Dose 94.9 ml/min Estimated GFR () 97.3 Estimated GFR (Non- 84.0 BUN/Creatinine Ratio 9.5 (10-20) Calcium Level 9.4 mg/dl (8.5-10.1) Total Bilirubin 0.3 mg/dl (0.2-1) Aspartate Amino Transf (AST/SGOT) 24 U/L (15-37) Alanine Aminotransferase (ALT/SGPT) 31 U/L (12-78) Alkaline Phosphatase 126 U/L (45-117) Total Protein 8.0 gm/dl (6.4-8.2) Albumin 3.8 gm/dl (3.4-5.0) Globulin 4.2 gm/dl (2.5-4.0) Albumin/Globulin Ratio 0.9 (0.9-2) Lipase 150 U/L (73-393) Urine Color YELLOW Urine Appearance CLEAR (CLEAR) Urine pH 5.0 (4.5-7.5) Urine Specific [place] 1.012 (1.000-1.030) Urine Protein NEG (NEG) Urine Glucose (UA) NEG (NEG) Urine Ketones NEG (NEG) Urine Occult Blood 1+ (NEG) Urine Nitrite NEG (NEG) Urine Bilirubin NEG (NEG) Urine Urobilinogen NEG (NEG) Urine Leukocyte Esterase TRACE (NEG) Urine WBC (Auto) 1-5 /hpf (0-5) Urine RBC (Auto) 0-4 /hpf (0-4) Urine Hyaline Casts (Auto) 0 /lpf (0-5) Urine Epithelial Cells (Auto) 10-20 /lpf (0-5) Urine Bacteria (Auto) NEG (NEG) Laboratory results reviewed by me Medications Administered Medications (Trade) Dose Ordered Sig/Pati Route Start Time Stop Time Status Last Admin Dose Admin Sodium Chloride 500 ml @ 999 mls/hr Q31M IV 05/20/17 18:45 06/19/17 18:44 05/20/17 19:16 999 MLS/HR Ketorolac Tromethamine (Toradol Inj) 10 mg NOW STAT IV 05/20/17 20:00 05/20/17 20:02 DC 05/20/17 20:11 10 MG Hydromorphone HCl (Dilaudid Inj) 0.5 mg NOW STAT IV 05/20/17 21:29 05/20/17 21:36 DC 05/20/17 22:17 0.5 MG Cephalexin Monohydrate (Keflex 500MG Home Pack) 1 homepack NOW ONCE PO 05/20/17 23:15 05/20/17 23:16 DC 05/20/17 23:24 1 HOMEPACK Oxycodone HCl (Roxicodone Immediate Rel 5MG Home Pack) 1 homepack UD ONCE PO 05/20/17 23:15 05/20/17 23:16 DC 05/20/17 23:24 1 HOMEPACK ED Course 181: The patient was evaluated by the Resident at this time. 1845: Sodium Chloride 500 mL @ 999 mL/hr IV. 1999: The patient was evaluated in room B10. A complete history and physical exam was performed. 1999: Ordered Toradol 10 mg IV. 2129: Dilaudid 0.5 mg IV. On reassessment patient was feeling better. 2217: Reassessed the patient and she is doing well. Proceeding to ultrasound. 2221: Consulted OB 2226: Discussed case with Dr. Bennett. The patient will be followed up in the clinic. 230: Reassessed the patient. She is doing well. Discussed the findings. Ultrasound imaging negative. She will also follow-up with Dr. King in general surgery regarding the appendiceal findings. Medical Decision Triage Nursing notes reviewed. The patient's presentation and history were concerning for postoperative abdominal pain. Etiologies such as postoperative abdominal pain, appendicitis, diverticulitis, obstruction, inflammatory bowel disease, renal colic, PUD, biliary pathology, pancreatitis, mesenteric ischemia, aortic pathology, infections, genitourinary, UTI, perforated viscus, as well as others were entertained. The patient was evaluated. Physical examination revealed a very small stitch abscess of the right upper quadrant but this was not able to fully explain her pain. She did not have associated cellulitis. There was a small amount of pus that I was able to sample after prepping the skin and unroofing the Dermabond. Culture was sent. Her testing was unremarkable. Urinalysis was unremarkable. CT imaging with IV and oral contrast did not reveal any evidence of emergent pathology. Her appendix was abnormal and she was referred to general surgery for this. I did notify [employer] of the findings. Discussed the case. The patient will be seen in the office for follow-up. Keflex will be prescribed for the stitch abscess. The patient underwent imaging of her right upper quadrant ultrasound which did not reveal any abnormal findings. A physical patient is very tender in the right upper quadrant and right flank area. She is tender to superficial touch. This makes me think that this may be musculoskeletal within the abdominal wall related to her surgery and trocar placements. I discussed conservative management with her. She was given a dose of Toradol than small dose of Dilaudid prior to ultrasound imaging and did well with this. She will be given oxycodone home pack to use sparingly as needed for breakthrough pain. She will use Tylenol and ibuprofen. She has a scheduled appointment the day after tomorrow with her [employer] surgeon. If she worsens in any way she will be back. I gave my usual and customary discussion regarding this issue. The patient was seen and examined with Dr. Zhang, resident physician. We discussed the case and treatments ordered, reviewed the results, and determine the disposition. Please refer to the resident's note for additional details. I have been directly involved with the management and disposition as well as independently evaluated the patient as documented in this note. Consults Consulting Physician: Dr. Bennett Impression Primary Impression: Right sided abdominal pain Additional Impressions: Postoperative stitch abscess abnormal structural appearance of the appendix Scribe Attestation The scribe's documentation has been prepared under my direction and personally reviewed by me in its entirety. I confirm that the note above accurately reflects all work, treatment, procedures, and medical decision making performed by me. Departure Information Dispostion Home / Self-Care Prescriptions Cephalexin Monohydrate (Keflex) 500 Mg Cap 500 MG PO QID, #28 CAP Prov: Blake Rojas MD 05/20/17 Referrals No Doctor, Assigned (PCP) Patient Instructions My [facility] Additional Instructions Cephalexin(Keflex) 500mg: Take one pill four times daily for 7 days for your skin infection. All antibiotics can cause diarrhea. If this occurs and you feel worse or it does not resolve in 1-2 days follow up with your doctor or return to the Emergency Department as this could be signs of serious underlying problems. Any medication can cause an allergic reaction, stop the pills immediately and return to the ER for rash, hives, breathing difficulties, or swelling. Oxycodone (OxyIR) 5mg: Take 1 pill every four hours as needed for breakthrough pain. Avoid alcohol, operating machinery or dangerous equipment, working on ladders or roofs, DRIVING, or situations where being under the influence may be dangerous. It is recommended to use a stool softener such as Colace, 100mg twice daily while taking this medication to avoid constipation. Ibuprofen(Motrin, Advil) may be used for fever or pain. Use 600mg every six hours as needed. Take with food. Avoid using more than 2400mg in a 24 hour period. Do not use 2400mg per day for more than three consecutive days without physician direction. Prolonged inappropriate use can lead to stomach upset or ulcers. (AND/OR) Acetaminophen(Tylenol) may be used for fever or pain. Use 1000mg every six hours as needed. Avoid using more than 4000mg in a 24 hour period. Warm compresses to the affected area 4 times daily for 15-20 minutes. Rest and drink plenty of fluids. Continue current medications except stop the Cipro. Return to the ER for severe pain, persistent fevers, spreading redness, bloody stools, chest pain, or any worsening of your condition. Follow up with your [employer] surgeon as scheduled on for a recheck of the current condition. Your appendix had an abnormal appearance but it was not inflamed to suggest appendicitis. This needs to be followed up by general surgery. Call the number listed under Dr. King below for follow-up. Give the office a call tomorrow. Problem Qualifiers
== END 2017-05-20 23:25 | disposition home or self-care (01) ==
LOC: C.EDB 17:45
DX: R10.31 Right lower quadrant pain (principal); T81.4XXA Infection following a procedure, initial encounter; Y83.9 Surgical procedure, unspecified as the cause of abnormal reaction of the patient, or of later complication, without mention of misadventure at the time of the procedure; K38.9 Disease of appendix, unspecified; G43.909 Migraine, unspecified, not intractable, without status migrainosus; Z82.49 Family history of ischemic heart disease and other diseases of the circulatory system; Z80.9 Family history of malignant neoplasm, unspecified; Z83.6 Family history of other diseases of the respiratory system; F17.210 Nicotine dependence, cigarettes, uncomplicated

== ENCOUNTER → 2017-07-29 | Day surgery (SDC) | payer OTHER ==
[2017-07-09 10:21] VITALS: Ht 176.5 cm; Wt 81.8 kg
[~2017-07-29] VITALS: Ht 176.5 cm; Wt 81.8 kg
[~2017-07-29] MED LIST changes: -IBUP-1451 PO; +LIDOCAINE HCL 2% 2 ML VIAL (20MG/ML) ONE; +PROPOFOL IV EMULSION 10 MG/ML 20 ML VIAL IV ONE; +SODIUM CHLORIDE 0.9% 500ML 500 ML IV ONE; +TRAM-10 PO
--- NOTE | 2017-07-29 15:41 | Endo History and Physical ---
History & Physical Date of Service: Jul 29, 2017. Chief Complaint: RLQ PAIN, ABNORMAL CT Referring Physician: DR. YOUNG History of Present Illness 47 yo CF who presents for colonoscopy secondary to RLQ abdominal pain and abnormal CT scan. Past Surgical History Hx Cardiac Surgery: No Hx Internal Defibrillator: No Hx Pacemaker: No Hx Abdominal Surgery: Yes (, TUBAL LIGATION, TAHBSO) Hx Post-Op Nausea and Vomiting: No Hx Cancer Surgery: No Hx Thoracic Surgery: No Hx Orthopedic: No Hx Urinary Tract Surgery: No Family History Colon CA Social History Smoking Status: Current Every Day Smoker Hx Substance Use: No Hx Alcohol Use: No Allergies Coded Allergies: NO KNOWN DRUG ALLERGIES (Verified Allergy, Unknown, ., 07/09/17) Current Medications Reported Home Medications Medications Dose Route/Sig Max Daily Dose Days Date Category Chantix (Varenicline) 1 Mg Tab 1 Mg PO DIRECTED 07/09/17 Reported Ultram (Tramadol HCl) 50 Mg Tab 50 Mg PO Q6H PRN 05/31/17 Reported Vital Signs Weight (Kilograms): 81.82 Height (Feet): 5 Height (Inches): 9.5 Date Time Temp Pulse Resp B/P (MAP) Pulse Ox O2 Delivery O2 Flow Rate FiO2 07/29/17 15:28 36.4 103 20 107/83 (91) 98 Room Air Physical Exam General Appearance: WD/WN, no apparent distress Respiratory/Chest: Auscultation: breath sounds normal Cardiovascular: Heart Auscultation: RRR Abdomen: Bowel Sounds: normal Inspection & Palpation: soft, non-distended, no tenderness, guarding & rebound Assessment and Plan Assessment: 47 yo CF who presents for colonoscopy secondary to RLQ abdominal pain and abnormal CT scan. Plan: Proceed with colonoscopy.
--- NOTE | 2017-07-29 16:11 | GI REPORT ---
Procedure Date: 07/29/2017 3:26 PM Procedure: Colonoscopy Indications: Abdominal pain in the right lower quadrant Medicines: Monitored Anesthesia Care Complications: No immediate complications. Estimated Blood Loss: Estimated blood loss: none. Procedure: Pre-Anesthesia Assessment: - Prior to the procedure, a History and Physical was performed, and patient medications and allergies were reviewed. The patient's tolerance of previous anesthesia was also reviewed. The risks and benefits of the procedure and the sedation options and risks were discussed with the patient. All questions were answered, and informed consent was obtained. Prior Anticoagulants: The patient has taken no previous anticoagulant or antiplatelet agents. ASA Grade Assessment: II - A patient with mild systemic disease. After reviewing the risks and benefits, the patient was deemed in satisfactory condition to undergo the procedure. After I obtained informed consent, the scope was passed under direct vision. Throughout the procedure, the patient's blood pressure, pulse, and oxygen saturations were monitored continuously. The scope was introduced through the anus and advanced to the terminal ileum. The colonoscopy was performed without difficulty. The patient tolerated the procedure well. The quality of the bowel preparation was good. The terminal ileum, ileocecal valve, appendiceal orifice, and rectum were photographed. Findings: The perianal and digital rectal examinations were normal. Non-bleeding internal hemorrhoids were found during retroflexion. The hemorrhoids were small. The exam was otherwise without abnormality. Impression: - Non-bleeding internal hemorrhoids. - The examination was otherwise normal. - No specimens collected. Recommendation: - Resume previous diet. - Continue present medications. - Repeat colonoscopy in 10 years for surveillance. - Return to primary care physician as previously scheduled. Jaime Martin, 07/29/2017 4:11:11 PM This report has been signed electronically. Note Initiated On: 07/29/2017 3:26 PM I attest to the content of the Intraoperative Record and orders documented therein, exceptions below
--- NOTE | 2017-07-29 16:17 | Anesthesiology Progress Note ---
Anesthesia Post Op Note Date & Time Jul 29, 2017 at 16:17 Vital Signs Pain Intensity: 4 Vital Signs Past 12 Hours Date Time Temp Pulse Resp B/P (MAP) Pulse Ox O2 Delivery O2 Flow Rate FiO2 07/29/17 15:28 36.4 103 20 107/83 (91) 98 Room Air Notes Mental Status: alert / awake / arousable, participated in evaluation Pt Amnestic to Procedure: Yes Nausea / Vomiting: adequately controlled Pain: adequately controlled Airway Patency, RR, SpO2: stable & adequate BP & HR: stable & adequate Hydration State: stable & adequate Anesthetic Complications: no major complications apparent
--- NOTE | 2017-07-29 16:37 | Discharge Instructions ---
Endoscopy Patient Instructions Date / Procedure(s) Performed Jul 29, 2017. Colonoscopy Allergy Information Coded Allergies: NO KNOWN DRUG ALLERGIES (Verified Allergy, Unknown, ., 07/09/17) Discharge Date / Findings Jul 29, 2017. Internal hemorrhoids Medication Instructions OK to resume all medications today as prescribed Reported Home Medications Medications Dose Route/Sig Max Daily Dose Days Date Category Chantix (Varenicline) 1 Mg Tab 1 Mg PO DIRECTED 07/09/17 Reported Ultram (Tramadol HCl) 50 Mg Tab 50 Mg PO Q6H PRN 05/31/17 Reported Provider Instructions Activity Restrictions - No exercising or heavy lifting for 24 hours. - Do not drink alcohol the day of the procedure. - Do not drive a car or operate machinery until the day after the procedure. - Do not make any important decisions or sign important papers in 24 hours after the procedure. Following Day: - Return to full activity which may include returning to work/school. Diet Start your diet with liquids and light foods (jello, soup, juice, toast). Then eat your usual diet if not nauseated. Treatment For Common After Affects For mild abdominal pain, bloating, or excessive gas: - Rest - Eat lightly - Lie on right side Follow-Up Information Follow-up with DR. YOUNG as scheduled Anesthesia Information What You Should Know You have had a procedure that required some medicine to reduce anxiety and discomfort. This treatment is called moderate sedation. After receiving the treatment, you may be sleepy, but you will be able to breathe on your own. The effects of the treatment may last for several hours. Follow these instructions along with Activity/Diet recommendations noted above: * Do NOT do anything where dizziness or clumsiness would be dangerous. * Rest quietly at home today, then you can be up and about tomorrow. * Have a responsible person stay with you the rest of today. * You may have had an I.V. today. If so, you may take the dressing off later today. Recommendations Call your doctor if: * Trouble breathing * Continuous vomiting for more than 24 hours * Temperature above 101 degrees * Severe abdominal pain or bloating * Pain not relieved by pain medicine ordered * There is increased drainage or redness from any incision * A large amount of rectal bleeding greater than 2-3 tablespoons. (If you had a polyp/s removed or have hemorrhoids, a small amount of blood - from the rectum is to be expected.) * You have any unanswered questions or concerns. IN THE EVENT OF A SERIOUS EMERGENCY, GO TO THE NEAREST EMERGENCY ROOM Your discharge instructions were prepared by provider Jaime Martin. Patient Instructions Signature Page Carolyne Moreno Patient (or Guardian) Signature/Date: I have read and understand the instructions given to me by my caregivers. Caregiver/RN/Doctor Signature/Date: The above-named patient and/or guardian has received patient instructions on this date. + Original Patient Signature Page (only) stays with chart. Please make copy for patient.
[2017-07-29 16:41] VITALS: BP 126/72; PULSE 72; O2SAT 100
== END | disposition home or self-care (01) ==
LOC: C.GI 15:10
PROVIDERS: ATTEND Internal Medicine
DX: R10.31 Right lower quadrant pain (principal); R93.8 Abnormal findings on diagnostic imaging of other specified body structures; K64.8 Other hemorrhoids; Z98.51 Tubal ligation status; F17.200 Nicotine dependence, unspecified, uncomplicated; Z80.0 Family history of malignant neoplasm of digestive organs

== ENCOUNTER → 2017-09-16 | Outpatient (CLI) | payer OTHER ==
[~2017-09-16] MED LIST changes: -LIDOCAINE HCL 2% 2 ML VIAL (20MG/ML) ONE; -PROPOFOL IV EMULSION 10 MG/ML 20 ML VIAL IV ONE; -SODIUM CHLORIDE 0.9% 500ML 500 ML IV ONE
--- NOTE | 2017-09-16 13:05 | DIAGNOSTIC IMAGING REPORT ---
CHEST 2 VIEWS ROUTINE CLINICAL HISTORY: R07.89 atypical chest pain COMPARISON STUDY: 08/10/2014 FINDINGS: The cardiac and mediastinal contours are normal. There is no evidence of focal pulmonary consolidation. There is no evidence of failure. No pleural effusions are visualized.[There is stable biapical pleural and parenchymal scarring IMPRESSION: No active disease in the chest. Electronically signed by: Kenroy Espinosa M.D. 09/16/2017 1:04 PM Dictated Date/Time: 09/16/2017 1:03 PM
== END | disposition home or self-care (01) ==
LOC: C.RAD 12:08
PROVIDERS: ATTEND Family Medicine
DX: R07.89 Other chest pain (principal)